=== PATIENT | female | born 1965 | race Caucasian/White ===

== ENCOUNTER 2019-03-19 06:49 | Day surgery (SDC) | payer BC ==
[~2019-03-19 06:49] MED LIST: Lactated Ringers 1,000 ML IV SCH; Sodium Chloride 0.9% 10 ML SDV IV PRN; Sodium Chloride 0.9% 10 ML Syringe FLUSH PRN; Sodium Chloride 0.9% 2.5 ML Syringe FLUSH PRN
[2019-03-19] MEDS ORDERED: Bupivacaine 0.5% 10 ML SDV ONE (07:18)
[2019-03-19] MEDS ORDERED: Octyl 2-Cyanoacrylate 1 Tube ONE (07:18)
[2019-03-19] MEDS ORDERED: Lidocaine 1% 20 ML MDV ONE (07:19)
--- NOTE | 2019-03-19 08:23 | PCM.OPNOTE ---
- General Post-Op/Procedure Note Date of Surgery/Procedure: 03/19/19 Operative Procedure(s): Excision scalp lesion x 2 Findings: 1 cm pilar cyst, 6mm pilar cyst, no margins Pre Op Diagnosis: Pilar cyst Post-Op Diagnosis: same Anesthesia Technique: MAC Primary Surgeon: Annika Feliciano Condition: Good
--- NOTE | 2019-03-19 14:48 | OR ---
SURGEON: ANNIKA FELICIANO MD DATE OF PROCEDURE: 03/19/2019 PREOPERATIVE DIAGNOSIS: Pilar cysts of scalp. POSTOPERATIVE DIAGNOSIS: Pilar cysts of scalp PROCEDURE PERFORMED: Excision of scalp lesion x2. PRIMARY SURGEON: Annika Feliciano MD. ANESTHESIA: Local. FLUIDS: See Anesthesia record. ESTIMATED BLOOD LOSS: 5 mL. FINDINGS: 1 cm and 6 mm pilar cysts. No margins. COMPLICATIONS: None. INDICATIONS: The patient is a 53-year-old female who presents with two enlarging cysts on her right parietal scalp. Decision was made to excise these. I explained the procedure, expected perioperative course, and risks. She verbalized understanding and wishes to proceed. PROCEDURE IN DETAIL: The patient was brought into the OR and placed in the OR cart in a beach chair position. A time-out was completed verifying the patient's name, age, date of , allergies, and procedure to be performed. The scalp and lesions were prepped and draped in usual standard fashion. I anesthetized the area overlying the lesions with 1% lidocaine plain. A 15 blade was used to make an incision over the apex of these two scalp masses. Cautery was used to dissect down to the level of the cysts. Using a hemostat, I dissected the cysts free from the surrounding subcutaneous tissue. They were removed and placed on the back table. The largest one measured 1 cm in size, the other one measured 6 mm in size. They were sent to pathology, labeled as right scalp lesions. Hemostasis was achieved in each wound using cautery. The wounds were then closed with interrupted 3-0 Prolene sutures. Sterile dressings were applied. The patient tolerated the procedure well and was transferred to the PACU in stable condition. NICOLE / SAVANA /[id number]
== END 2019-03-19 08:40 | disposition home or self-care (01) ==
LOC: MW.SDS 06:49
PROVIDERS: ATTEND Surgery
DX: L72.11 Pilar cyst (principal)
CPT/HCPCS: 11421; 81025; J2001; J7120; 88304; A9270-GY; J3490